=== PATIENT | male | born 1950 | race American Indian/Alaskan Native ===

== ENCOUNTER 2017-11-23 09:10 | Emergency (ER) | payer MEDICARE, MEDICAID ==
[2017-11-23 09:20] VITALS: BP 122/81; PULSE 77; RESP 18; TEMP 98.1; O2SAT 100
[2017-11-23 09:27] VITALS: BMI 22.1
--- NOTE | 2017-11-23 12:44 | C.PDOC ---
History Of Present Illness 67 year old male presents to the ED for a blood pressure check. The patient notes that he checked his blood pressure at home and it was normal. However, he came to the ED to recheck because his machine is new. Otherwise, the patient does not have any other complaints. Time Seen by Provider: 11/23/17 09:33 Chief Complaint (Nursing): Medical Clearance History Per: Patient History/Exam Limitations: no limitations Recent travel outside of the [place]: No Past Medical History Reviewed: Historical Data, Nursing Documentation, Vital Signs Vital Signs: Last Vital Signs Temp 98.1 F 11/23/17 09:19 Pulse 77 11/23/17 09:19 Resp 18 11/23/17 09:55 BP 122/81 11/23/17 09:19 Pulse Ox 100 11/23/17 09:19 Family History: States: Unknown Family Hx - Social History Hx Alcohol Use: No Hx Substance Use: No - Immunization History Hx Tetanus Toxoid Vaccination: No Hx Influenza Vaccination: No Hx Pneumococcal Vaccination: No Review Of Systems Constitutional: Negative for: Fever Cardiovascular: Negative for: Chest Pain, Palpitations Respiratory: Negative for: Shortness of Breath Gastrointestinal: Negative for: Nausea, Vomiting Neurological: Negative for: Weakness, Numbness, Headache, Dizziness Physical Exam - Physical Exam Appears: Non-toxic, No Acute Distress Skin: Warm, Dry Head: Atraumatic, Normacephalic Neck: Normal ROM, Supple Cardiovascular: Rhythm Regular Respiratory: Normal Breath Sounds, No Rales, No Rhonchi, No Wheezing Gastrointestinal/Abdominal: Normal Exam Extremity: Normal ROM Neurological/Psych: Oriented x3, Normal Speech, Normal Motor, Normal Sensation Gait: Steady ED Course And Treatment O2 Sat by Pulse Oximetry: 100 (RA) Pulse Ox Interpretation: Normal Medical Decision Making Medical Decision Making: Impression: 67 year old male presents to the ED for a blood pressure check. Reassess and disposition: Patients condition remained stable throughout Emergency Department evaluation and patient was discharged home. Disposition - Disposition Referrals: Buck Malone DO [Staff Provider] - Disposition: HOME/ ROUTINE Disposition Time: 09:35 Condition: GOOD Additional Instructions: [facility], thank you for letting us take care of you today. The emergency medical care you received today was directed at your acute symptoms. If you were prescribed any medication, please fill it and take as directed. It may take several days for your symptoms to resolve. Return to the Emergency Department if your symptoms worsen, do not improve, or if you have any other problems. Please contact your doctor or call one of the physicians/clinics you have been referred to that are listed on the Patient Visit Information form that is included in your discharge packet. Bring any paperwork you were given at discharge with you along with any medications you are taking to your follow up visit. Our treatment cannot replace ongoing medical care by a primary care provider outside of the emergency department. Thank you for allowing the [facility] team to be part of your care today. Follow up with your primary care doctor as scheduled for re-evaluation and further management. Instructions: High Blood Pressure (DC) Forms: [employer] ([place]) - Clinical Impression Clinical Impression: Hypertension - Scribe Statement The provider has reviewed the documentation as recorded by the Scribe (Efraín Smith) All medical record entries made by the Scribe were at my direction and personally dictated by me. I have reviewed the chart and agree that the record accurately reflects my personal performance of the history, physical exam, medical decision making, and the department course for this patient. I have also personally directed, reviewed, and agree with the discharge instructions and disposition.
== END 2017-11-23 09:55 | disposition home or self-care (01) ==
LOC: C.ER 09:10
DX: I10 Essential (primary) hypertension (principal)